=== PATIENT | female | born 1975 | race Caucasian/White ===

== ENCOUNTER 2016-10-09 10:06 | Outpatient (CLI) | payer BC, OTHER ==
[2016-10-09 17:31] LABS: ALBUMIN/GLOBULIN RATIO 1.4 (1.0-2.2); BILIRUBIN,TOTAL 0.3 mg/dL (0.2-1.0); CREATININE 0.9 mg/dL (0.4-1.0); POTASSIUM 3.9 mmol/L (3.5-5.0)
[2016-10-09 17:36] LABS: BASOPHILS # (AUTO) 0.1 10^3/uL (0.0-0.1); BASOPHILS % (AUTO) 0.9 %; EOSINOPHILS # (AUTO) 0.2 10^3/uL (0.0-0.7); EOSINOPHILS % (AUTO) 1.5 %; HCT - HEMATOCRIT 38.5 % (37.0-47.0); HGB - HEMOGLOBIN 12.6 g/dL (12.0-16.0); LYMPHOCYTES # (AUTO) 3.3 10^3/uL (1.5-3.5); LYMPHOCYTES % (AUTO) 32.7 %; MEAN CORPUSCULAR HGB CONC 32.8 g/dL (32.0-36.0); MEAN CORPUSCULAR VOLUME 88.4 fL (81.0-99.0); MEAN PLATELET VOLUME 8.4 fL (7.9-10.8); MONOCYTES # (AUTO) 0.6 10^3/uL (0.0-1.0); MONOCYTES % (AUTO) 6.3 %; NEUTROPHILS % (AUTO) 58.6 %; RED BLOOD COUNT 4.35 10^6/uL (4.20-5.40); RED CELL DISTRIBUTION WIDTH 13.5 % (12.0-15.0); UNCORRECTED WHITE BLOOD COUNT 10.2 x10^3/uL; WHITE BLOOD COUNT 10.2 x10^3/uL (4.8-10.8)
== END 2016-10-09 10:07 | disposition home or self-care (01) ==
LOC: LAB.R 10:06
PROVIDERS: ATTEND Physician Assistant Medical
DX: R00.2 Palpitations (principal)
CPT/HCPCS: 80053; 84443; 85025

== ENCOUNTER 2017-08-09 08:00 | Outpatient (CLI) | payer BC, OTHER | END 2017-08-09 08:01 | disposition home or self-care (01) | LOC: LAB.R 08:00 | PROVIDERS: ATTEND Nurse Practitioner Obstetrics & Gynecology | DX: N89.8 Other specified noninflammatory disorders of vagina (principal) | CPT/HCPCS: 87480; 87510; 87660 ==

== ENCOUNTER 2017-08-23 10:07 | Outpatient (CLI) | payer BC ==
--- NOTE | 2017-08-26 13:50 | Mammography Report ---
DIGITAL SCREENING MAMMOGRAM: 08/23/2017 CLINICAL INDICATION: A 41-year-old nulliparous patient with family history of breast cancer for screening. COMPARISON: 12/2015, 06/2007. TECHNIQUE: Routine CC and MLO projections were obtained of the breasts. FINDINGS: The breasts demonstrate scattered fibroglandular densities bilaterally. Punctate, typically benign calcifications are present. No suspicious masses, clustered microcalcifications, or regions of architectural distortion are identified. IMPRESSION: BENIGN FINDINGS. RECOMMENDATION: Routine annual screening unless otherwise clinically indicated. BIRADS CATEGORY 2 - BENIGN FINDINGS. STANDARD QUALIFYING STATEMENTS: 1. This examination was reviewed with the aid of Computer-Aided Detection (CAD). 2. A negative or benign imaging report should not delay biopsy if clinically suspicious findings are present. Consider surgical consultation if warranted. More than 5% of cancers are not identified by imaging. 3. Dense breasts may obscure an underlying neoplasm. TD: 08/26/2017 13:50
== END 2017-08-23 10:08 | disposition home or self-care (01) ==
LOC: DI.N 10:07
PROVIDERS: ATTEND Nurse Practitioner Obstetrics & Gynecology
DX: Z12.39 Encounter for other screening for malignant neoplasm of breast (principal); Z80.3 Family history of malignant neoplasm of breast
CPT/HCPCS: 77067

== ENCOUNTER 2018-03-13 06:58 | Emergency (ER) | payer BC ==
--- NOTE | 2018-03-13 07:30 | ED Physician Documentation ---
PD HPI CHEST PAIN - Stated complaint Stated Complaint: COUGH/R SIDE PX - Chief complaint Chief Complaint: General - History obtained from History obtained from: Patient - History of Present Illness Timing - onset: Enter time (399), Today Timing - onset during: Sleep Timing - duration: Hours Timing - details: Abrupt onset, Still present Quality: Sharp, Pain Location: Right chest Radiation: Back Improved by: Rest Worsened by: Exertion, Inspiration, Movement, Palpation, Position Associated symptoms: Shortness of air, Cough. No: Diaphoresis, Nausea, Vomiting, Feeling faint / dizzy, General Weakness, Palpitations Similar symptoms before: Has not had sx before Recently seen: Clinic - Additional information Additional information: This year. She has had to take some prednisone and use an inhaler and she is been on a course of antibiotic recently. She has had an improvement in her cough but continues to have nighttime cough and at about 4:00 this morning she awoke with a coughing fit and felt a crack in the right side of her chest as persistent pain in the right chest. When she coughs it is a 10 out of 10 pain. At rest is 4 out of 10. Review of Systems Constitutional: denies: Fever, Chills Ears: denies: Ear pain Nose: reports: Congestion Throat: denies: Sore throat Cardiac: reports: Chest pain / pressure. 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: No - Immunizations Immunizations are current?: Yes PD ED PE NORMAL - Vitals Vital signs reviewed: Yes (diastolic hypertension ) - General General: Alert and oriented X 3, No acute distress, Well developed/nourished - HEENT HEENT: Atraumatic, PERRL, EOMI, Other (right TM is clear the left has residual inflamation in the attic appears improving ) - Neck Neck: Supple, no meningeal sign, No bony TTP - Cardiac Cardiac: RRR, No murmur - Respiratory Respiratory: No respiratory distress, Other (focal wheeze to right base point tenderness to the lateral chest wall ) - Abdomen Abdomen: Soft, Non tender - Back Back: No CVA TTP, No spinal TTP - Derm Derm: Normal color, Warm and dry, No rash - Extremities Extremities: No deformity, No edema - Neuro Neuro: Alert and oriented X 3, 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, No motor deficit, No sensory deficit, Normal speech Eye Opening: Spontaneous Motor: Obeys Commands Verbal: Oriented GCS Score: 15 - Psych Psych: Normal mood, Normal affect Results - Vitals Vitals: Vital Signs - 24 hr 03/13/ 07:15 Temperature 36.0 C L Heart Rate 96 Respiratory 16 Rate Blood Pressure 123/93 H O2 Saturation 99 Oxygen O2 Source Room air - Rads (name of study) pa chest/right ribs Radiology: Prelim report reviewed (Impression: Age indeterminate nondisplaced fracture of the right lateral eighth rib, but new since 2013.), EMP read indepedently, See rad report PD MEDICAL DECISION MAKING - ED course Complexity details: reviewed old records, reviewed results, re-evaluated patient, considered differential, d/w patient ED course: 42-year-old female who is developed a cough for several months is now coughed hard enough to crack a rib. She is administered DEXA methadone here in the emergency department there is no evidence of an infiltrate on chest x-ray it does appear she has had some resolving left otitis. She does have a primary care doctor's office appointment this afternoon and I have encouraged the patient to follow-up there with regards to her cough for continuity. Today I provided the patient with a prescription for some Tessalon Perles and hydrocodon e and note for work. Departure - Departure Disposition: 01 Home, Self Care Clinical Impression: Right rib fracture Qualifiers: Encounter type: initial encounter Rib fracture type: single rib Fracture type: closed Qualified Code(s): S22.31XA - Fracture of one rib, right side, initial encounter for closed fracture Condition: Stable Instructions: ED Fx Rib Follow-Up: Ryann Funes PA-C [Primary Care Provider] - Prescriptions: Benzonatate [Tessalon Perle] 100 - 200 mg PO Q8HR PRN #20 capsule PRN Reason: Cough Hydrocodone/Acetaminophen [Hydrocodon-Acetaminophen 5-325] 1 - 2 each PO Q6H PRN #14 tablet PRN Reason: pain Forms: Activity restrictions
[2018-03-13] MEDS ORDERED: CHERRY SYRUP 10 ML UDC PO ONE (07:31)
[2018-03-13] MEDS: DEXAMETHASONE 10 MG/ML VIAL PO STA (07:34)
--- NOTE | 2018-03-13 08:17 | XRAY Report ---
Reason: right lateral chest pain Procedure Date: 03/13/2018 Accession Number: [id number] / [id number] Procedure: XR - Ribs w/PA Chest RT CPT Code: FULL RESULT: EXAM: RIGHT RIB RADIOGRAPHY EXAM DATE: 03/13/2018 08:02 AM. CLINICAL HISTORY: Right lateral chest pain. COMPARISON: Chest 2 views PA/LAT 12/16/2013 11:12 AM. TECHNIQUE: 1 view of the chest and 2 views of the ribs. FINDINGS: Bones: There is an age-indeterminate nondisplaced fracture of the right lateral eighth rib not visible on the comparison exam of 2013. No additional fractures appreciated. Lungs: No focal opacities. No pneumothorax. No pleural effusions. Mediastinum: Heart and mediastinal contours are unremarkable. Other: None. IMPRESSION: Age-indeterminate nondisplaced fracture of the right lateral eighth rib, but new since 2013. RADIA
[2018-03-13 09:15] VITALS: BP 118/86
== END 2018-03-13 08:50 | disposition home or self-care (01) ==
LOC: ED 06:58
DX: S22.31XA Fracture of one rib, right side, initial encounter for closed fracture (principal); X50.9XXA Other and unspecified overexertion or strenuous movements or postures, initial encounter; R05 Cough; E78.00 Pure hypercholesterolemia, unspecified
CPT/HCPCS: 99283

== ENCOUNTER 2018-10-23 09:08 | Outpatient (CLI) | payer BC ==
--- NOTE | 2018-10-24 10:52 | Mammography Report ---
Reason: SCREENING FOR SIMEON EVANS,BREAST Procedure Date: 10/23/2018 Accession Number: [id number] / [id number] Procedure: MGN - Screening Mammo Dig Bilat CPT Code: FULL RESULT: EXAM: Screening Mammo Dig Bilat DATE: 10/23/2018 9:35 AM CLINICAL HISTORY: Screening encounter. History of nulliparity and early menses. Family history of breast cancer in the mother at the age of 40. TECHNIQUE: (B) - Bilateral CC and MLO views were obtained. COMPARISON: 08/23/2017 and 01/17/2016. PARENCHYMAL PATTERN: (A) - The breast(s) demonstrate(s) scattered fibroglandular densities. FINDINGS: There are no suspicious masses, calcifications, or areas of distortion. IMPRESSION: Negative examination. BI-RADS category 1. RECOMMENDATION: (ANNUAL) - Recommend routine annual screening mammography. BI-RADS CATEGORY: (1) - Negative. STANDARD QUALIFYING STATEMENTS: 1. This examination was not reviewed with the aid of Computer-Aided Detection (CAD). 2. A negative or benign imaging report should not preclude biopsy if clinically suspicious findings are present. 3. Dense breasts may obscure an underlying neoplasm. 4. This examination was reviewed without the aid of 3D breast imaging (tomosynthesis).
== END 2018-10-23 09:09 | disposition home or self-care (01) ==
LOC: DI.N 09:08
PROVIDERS: ATTEND Nurse Practitioner Obstetrics & Gynecology
DX: Z12.31 Encounter for screening mammogram for malignant neoplasm of breast (principal); Z80.3 Family history of malignant neoplasm of breast
CPT/HCPCS: 77067

== ENCOUNTER 2019-02-23 15:07 | Outpatient (CLI) | payer BC ==
[2019-02-23 16:22] VITALS: BP 111/82
--- NOTE | 2019-02-23 16:22 | SLEEP CARE CONSULTATION ---
Information from patient questionnaire entered by Rebecca Shoemaker. I have reviewed and concur with the information entered by Rebecca Shoemaker. This document represents the service I personally performed and the decisions made by me, Tamika Barrera MD, [facility]. History of Present Illness Reason for Visit: New patient Chief Complaint: reports: Unrefreshed sleep, Snoring, Fatigue, Frequent awakenings at night Duration of Symptoms: a few months Usual bedtime: 2100 Time it takes to fall asleep: 30-60 minutes Snores at night: Yes Observed to quit breathing while asleep: Yes Sleeps alone due to snoring: No Number of times waking at night: 2-5 Reasons for waking at night: reports: Pain, Bathroom, Other (twitching) Toss, Turn, or Twitch while sleeping: Yes Recalls having dreams: Yes Usually gets out of bed at: 0500 Feels refreshed in the morning: No Morning headache: No Sleepy or fatigued during the day: Yes Ever fallen asleep while driving: No Takes day naps: No Dreams during day naps: Yes Prior sleep studies: No Additional HPI information: I had the pleasure of seeing Ms. Tripp today regarding the possibility of her having a sleep disorder. As you know, she is a 43 year old lady who complains of loud snore, frequent awakenings, unrefreshed sleep, and persistent fatigue for the past few months. The patient tells me that she normally goes to bed around 9 pm, and it takes her approximately 30 - 60 minutes to fall asleep. She has been told that she snores loudly at night. She has been observed to stop breathing in her sleep. She sleeps alone. She can recall waking up on the average of 2 - 5 times during the night. Most of the time she wakes up because of having to use the bathroom and knee pain. She has awakened occasionally because of her own snoring, but choking, or having to gasp for air. There is a lot of tossing and turning in her sleep. No somniloquy (sleep talking) or somnambulism (sleep walking). Generally she can recall having dreams. In the morning she usually gets up out of the bed around 5 a.m. not feeling refreshed nor rested. She usually does not have a morning headache. During the day she complains of feeling sleepy and fatigued. Her score on Elmer Sleepiness Scale is 11 out of 24. She has never fallen asleep while driving nor has had any accident due to sleepiness. She usually does not take naps during the day. Upon falling asleep during the day she denies having vivid dreams. She has never had sleep paralysis, experienced cataplexy or symptoms of restless leg syndrome. She reports having impaired concentration during the day. Subjective Initial Elmer Sleepiness Scale score: 11 Past Medical History Past Medical History: reports: Asthma, GERD Social History The patient's occupation is a TEACHER. Patient is and lives in [place]. Have you smoked in the past 12 months: Yes Cigarettes per day (20/pack): 20 Years of smokin Quit date: 2008 Smoking Pack Years: 20.0 Alcohol use: Yes Alcohol amount and frequency: 1-2 once or twice/week Caffeine use: Yes Caffeine amount and frequency: one - 2 cups/day Family History Family history of sleep disordered breathing: Yes Family Hx Sleep Apnea: Mother: Snoring (aunts/nephews), Father: Snoring, Sibling: Snoring, Other: Snoring Allergies and Home Medications Drug allergies reviewed: Yes Home medication list reviewed: Yes Review of Systems Weight gain over past 5 years: 10-15 Weight loss over past 5 years: 5 Cardiovascular: reports: leg or foot swelling, have to sleep sitting up Respiratory: reports: shortness of breath, wheeze Gastrointestinal: reports: heartburn Urinary: reports: frequency Neurological: denies: headaches, seizure, head trauma, disorientation, speech dysfunction, gait or balance problems, fainting or unconsciousness, other Psychiatric: reports: anxiety, depression (sometimes) Ear/Nose/Throat: reports: nasal congestion, dry mouth/throat Endocrine: reports: sluggishness, too hot or cold Musculoskeletal: denies: joint pain, neck pain, back pain, joint swelling, muscle pain or cramping, mobility problems, other Immunologic: reports: allergies to food or environment Physical Exam Vital signs obtained and entered by: Dr. Barrera Blood Pressure: 111/82 Heart Rate: 80 O2 Saturation: 99 Height: 5 ft Weight: 188 lb Body Mass Index: 36.7 BMI Classification: Obesity Class 2 Neck circumference: 15 Mood/affect: normal HEENT: No craniofacial malformation Nostrils: patent to airflow Turbinates: normal Septum: midline Mouth and throat: narrow oropharynx Soft palate: long Hard palate: normal Uvula: normal Uvula visualization: 100% Mallampati Class I Tongue: enlarged in size with teeth he on lateral edges Tonsils: small Chin and jaw: normal size and position Neck: normal w/o lymphadenopathy or thyromegaly Heart: regular rate and rhythm Lungs: clear bilaterally Abdomen: soft, non-tender Extremities: no edema or clubbing Neurologic: intact, no focal deficits Impression and Plan IMPRESSION: 1. Obstructive Sleep Apnea-Hypopnea Syndrome, as suggested by history of loud snoring, observed cessation of breath while asleep, frequent awakenings during the night, unrefreshed sleep, cognitive impairment, and daytime hypersomnolence. Narrow oropharynx and obesity are common predisposing factors for obstructive sleep apnea-hypopnea syndrome. Pathophysiology of sleep- disordered breathing was discussed. I recommend proceeding to polysomnography to confirm the diagnosis and to assess severity. However, because his health insurance is [employer], a home sleep apnea test (HSAT) will be ordered as it is the only type of sleep study approved. Plan: 1. Order a home sleep apnea test (HSAT). 2. Avoid long distance driving or when feeling sleepy. 3. Avoid alcohol, sedative and muscle relaxant around bedtime. 4. Attempt to lose weight. I spent 100% of this 20 minute visit face to face with the patient with greater than 50% of this was spent time counseling the patient and coordination of care.
== END 2019-02-23 15:08 | disposition home or self-care (01) ==
LOC: SC 15:07
PROVIDERS: ATTEND Internal Medicine Pulmonary Disease
DX: G47.10 Hypersomnia, unspecified (principal); R06.81 Apnea, not elsewhere classified; R06.83 Snoring; R41.89 Other symptoms and signs involving cognitive functions and awareness; G47.8 Other sleep disorders; E66.9 Obesity, unspecified; Z68.36 Body mass index [BMI] 36.0-36.9, adult
CPT/HCPCS: 99203; 99212

== ENCOUNTER 2019-03-02 19:30 | Outpatient (CLI) | payer BC | END 2019-03-02 23:59 | disposition home or self-care (01) | LOC: SC 19:30 | PROVIDERS: ATTEND Internal Medicine Pulmonary Disease | DX: G47.10 Hypersomnia, unspecified (principal); R06.81 Apnea, not elsewhere classified; R06.83 Snoring | CPT/HCPCS: 95806 ==

== ENCOUNTER 2019-05-07 08:46 | Outpatient (CLI) | payer BC, OTHER ==
[2019-05-07 09:47] VITALS: BP 100/70
--- NOTE | 2019-05-07 09:47 | SLEEP CARE CONSULTATION ---
Information from patient questionnaire entered by Adina Tate. I have reviewed and concur with the information entered by Adina Tate. This document represents the service I personally performed and the decisions made by me, Uzma Pemberton RN, MSN, MENTAL HEALTH NURSE PRACTITIONER. History of Present Illness Initial [place] Sleepiness Scale score: 11 Current [place] Sleepiness Scale score: 10 Additional HPI information: AARON TRIPP returns for follow up of the recently performed home sleep study. She uses a wedge to raise head due to gastric reflux of approximate 10-20 degrees when sleeping. The patient was informed of the following findings. I explained the pathophysiology behind obstructive sleep apnea. Patient does not have sleep apnea and was advised how weight gain could increase the risk of developing sleep apnea in the future. I strongly encouraged the patient to lose weight. Patient has snoring. Snoring can be reduced by weight loss. Weight loss is best achieved with diet consult. Patient instructed to contact PCP for referral. If not available, Weight watchers is a good program for guidelines. Snoring can also be treated with an oral appliance from a dentist. Advised to check insurance coverage if considers. Patient is not interested. In addition, an ENT evaluation can be do to see if other treatment is indicated. No difficulty breathing through nose unless ill. Patient counseled not drink alcohol less than 4 hours before bedtime as it can increase snoring and apnea. Patient was cautioned about risks of drowsy driving until sleepiness symptoms resolve. Patient denies drowsy driving. [facility] patient education on snoring and sleep apnea given and reviewed. Patient is comfortable with these findings. She has a family history of sleep apnea and wanted to rule out. She reports other things that are disrupting sleep that could be contributing to daytime sleepiness such as knee pain, room mate leaving at 3:30 in morning and hearing him leave, new puppy now to take out to bathroom. She is waking from 1 to 5 times a night. The night of sleep test she felt she slept well and was refreshed when woke up. She finds her sleep disrupted a few days week and sleeps well a few days of week. As noted above her position is always supine due to small wedge used for reflux. The knee pain has been better with rest and has noted that is when she sleeps better. She just started physical therapy. Sleep Study - Results Polysomnography/Home Sleep Study results: SLEEP TIME AND EFFICIENCY: The sleep study recording began at 10:26:19 PM and ended at 05:37:45 AM. Total recording time was 431.4 minutes. The total sleep time was 399.5 minutes. The sleep efficiency was 92.6 percent. The patient spent 399.5 minutes supine, and spent 0.0 minutes non-supine. The patients own estimate of sleep time was 7.00 hours. RESPIRATORY DATA: The AHI in this report is indexed to sleep time based on actigraphy. The AASM defines this as ALONDRA. The AHI on this type 3 Home Sleep S tudy may understate the AHI determined on a type 1 or 2 study, since EEG is not monitored resulting in the inability to score non-desaturating hypopneas. Based on 4% Calculation: The AHI4% calculation of 2.3 per hour of recording time was based on a total of 2 scored apneas and 13 scored hypopneas with 4% desaturations. Supine AHI4%: 2.3 per hour. Non-supine AHI4%: 0.0 per hour. Oxygen Summary: Patient's baseline O2 saturation was 98.2 %. The patient spent 0.0 minutes at an oxygen saturation less than 90%, and 0.0 minutes less than 85%. The desaturation index was 2.4 events per hour sleep time. The lowest saturation was 90.3 %. SNORING: The percent of the study time spent snoring was 0.4 %. The Snoring Count was 61 . The Snoring Index was Patient Name: Aaron Tripp Study Date: 03/02/2019 : 1975 Page 2 of 6 9.2 . PULSE RATE REVIEW: The mean heart rate was 82 beats per minute. The rate ranged from a low of 68 to a high of 102 beats per minute. DIAGNOSIS CODE: DIAGNOSIS CODE: suspected Obstructive Sleep Apnea (ICD-10 G47.30)Impression: The test quality is good. The test duration is adequate. The patient only slept supine. The respiratory data revealed no significant sleep disordered breathing or hypoxemia. The pulse rate was within normal limits. Allergies and Home Medications Known drug allergies: Yes (lidocaine ) Home medication list reviewed: Yes Allergy and home medication list: Qvar inhaler bid REscue inhaler atorvastatin HS acyclovir prn cold sore Review of Systems Review of systems same as previous: Yes Physical Exam Blood Pressure: 100/70 Heart Rate: 80 O2 Saturation: 99 Height: 5 ft Weight: 184 lb 9.6 oz Body Mass Index: 36.0 BMI Classification: Obesity Class 2 Impression and Plan Snoring but no significant sleep disordered breathing. Patient advised that often weight loss will reduce snoring as well as apnea risk. An oral appliance can also be used for snoring. This would require a dental consultation. Patient cautioned not to use other online appliances as can cause bite issues. An ENT consult can also be helpful to determine if any other treatment is an option. After some discussion, the patient would like to try weight loss to reduce snoring. She is advised to follow up with PCP to discuss weight loss goals. The BMI chart was reviewed and I showed her where her current weight was and goal weight for normal range. She has been at 150 in the past and comfortable with that weight. She is advised to discuss a diet consultation with her PCP. If fatigue persists after knee pain resolved, then she is advised also to follow up with PCP for further evaluation. * Attempt to lose weight * Avoid alcohol consumption near bedtime * Follow up with PCP if fatigue persists when pain resolved * The patient is cautioned about driving until sleepiness is completely resolved. * Return if symptoms increase. Time Spent with Patient (minutes): 30 I spent 100% of this visit face to face with the patient with greater than 50% of this was spent time counseling the patient and coordination of care.
== END 2019-05-07 08:47 | disposition home or self-care (01) ==
LOC: SC 08:46
PROVIDERS: ATTEND Nurse Practitioner Family
DX: R06.83 Snoring (principal); G47.10 Hypersomnia, unspecified; E66.9 Obesity, unspecified; Z68.36 Body mass index [BMI] 36.0-36.9, adult
CPT/HCPCS: 99212; 99214